=== PATIENT | male | born 1975 | race Caucasian/White ===

== ENCOUNTER → 2021-07-09 08:47 | Outpatient (BNVA) | payer BC, SELFPAY | PROVIDERS: Visit Provider Orthopaedic Surgery | DX: M25.512 Pain in left shoulder (principal); G89.29 Other chronic pain | CPT/HCPCS: 73030 ==

== ENCOUNTER → 2023-01-28 10:48 | Outpatient (BNVA) | payer OTHER, SELFPAY | PROVIDERS: Visit Provider Emergency Medicine | DX: J02.9 Acute pharyngitis, unspecified (principal); R05.8 Other specified cough; J18.9 Pneumonia, unspecified organism | CPT/HCPCS: 87071; 87400; 87426; 87880 ==

== ENCOUNTER 2024-06-25 17:41 | Emergency (ER) | payer OTHER, SELFPAY ==
[2024-06-25 18:08] VITALS: BP 123/80; PULSE 72; RESP 16; TEMP 36.8; O2SAT 98; BMI 25.5
--- NOTE | 2024-06-25 19:06 | ED_ITS ---
HPI - Wound/Laceration General: Chief Complaint: Wound/Laceration Stated Complaint: lac RT thumb Time Seen by Provider: 06/25/24 18:51 History of Present Illness: 48-year-old male with getting an onion a t home and cut the tip of his right thumb. He is unsure of his last tetanus. No other injuries. There is a small amount of bleeding. Related Data Previous Rx's ?Medication ?Instructions ?Recorded albuterol sulfate 90 mcg/actuation 2 inh inhalation Q4 H PRN shortness 10/16/23 aerosol inhaler of breath or wheezing #8.5 g benjamín amoxicillin 875 mg-potassium 1 tab PO BID 10 days #20 tabs 10/16/23 clavulanate 125 mg tablet prednisone 20 mg tablet 20 mg PO BID 5 days #10 tabs 10/16/23 albuterol sulfate 2.5 mg/3 mL 2.5 mg (3 mL) inhalation Q4H PRN 10/20/23 (0.083 %) solution for nebulization shortness of breat h or wheezing #90 mL mupirocin 2 % topical ointment 1 applic topical BID #1 5 grams 06/25/24 (Centany) Allergies Allergy/AdvReac Type Severity Reaction Status Date / Time No Known Allergies Allergy Verified 06/25/24 18:11 Review of Systems Musc: Reports: other (Laceration tip right thumb) [facility] ED PFSH: Social History Smoking and tobacco/nicotine status: never used tobacco/nicotine Alcohol intake: never Substance/Drug Use: never Physical Exam Extremity: OTHER: Partial avulsion of the tip of the right thumb there is still a pedicle flap tissue appears viable. Digital nerve block carried out 4 interrupted sutures used to approximate skin. Good cosmesis and hemostasis. Procedures Laceration Laceration 1: Site: hand Side (If applicable): right Size (cm): 1 Description: flap Pre-repair: irrigated extensively Skin layer closed with: nylon Size (cm): 4-0 Number of sutures: 4 Technique: simple, interrupted Nerve Block Nerve Block 1: Local Anesthetic: lidocaine 1% Amount of anesthesia used (mL): 3 Side: right Nerve Blocks: digital (Right thumb) Procedure Successful: Yes Patient Tolerated Procedure: well Complications: none Course Vital Signs: Vital signs: Vital Signs Temperature 98.2 F 06/25/24 18:08 Pulse Rate 72 06/25/24 18:08 Respiratory Rate 16 06/25/24 18:08 Blood Pressure 123/80 06/25/24 18:08 Pulse Oximetry 98 06/25/24 18:08 MDM - Wound/Laceration Medical Decision Making Wound care instructions given follow-up with primary care to remove sutures in 7 to 10 days. No radiology studies performed this visit Discharge Plan Discharge Patient Disposition: Home Clinical Impression: Laceration Condition: Stable Prescriptions: New mupirocin [Centany] 2 % ointment 1 applic topical BID Qty: 15 0RF No Action prednisone 20 mg tablet 20 mg PO BID 5 Days Qty: 10 0RF amoxicillin-pot clavulanate 875-125 mg tablet 1 tab PO BID 10 Days Qty: 20 0RF albuterol sulfate 90 mcg/actuation HFA aerosol inhaler 2 inh inhalation Q4H PRN (Reason: shortness of breath or wheezing) Qty: 8.5 0RF albuterol sulfate 2.5 mg /3 mL (0.083 %) solution for nebulization 2.5 mg inhalation Q4H PRN (Reason: shortness of breath or wheezing) Qty: 90 0RF Discharge Orders: Discharge ED (Routine); Ordered 06/25/24 Ordered By: Judah Crouch Referrals: Cassius Elmore MD [Primary Care Provider, Family Practice] Discharge Diet: Usual diet Discharge Activity: Increase activity as tolerated Patient Instructions: Opioid Safety, Pain Management Activity Restrictions/Additional Instructions: Thank you for choosing [facility] for your healthcare needs today. It is very important that you follow up as instructed or that you return to the Emergency Department should you have concerns or if your condition changes or worsens in any way. You are seen in the emergency room with complaints of laceration to your right thumb. Wound was closed with sutures. Apply topical antibiotic ointment to the wound twice daily and keep covered while you are working sutures should be removed in 7 to 10 days. Your primary care doctor can remove those. Print Language: Polish Coding Level of Care Code ED [employer] for Katie Graf
[2024-06-25] MEDS: tetanus-dipt-pertussis 0.5 mL SDV IM (19:31)
[2024-06-25] MEDS: lidocaine 1% 10 ML INJ 20 ML IM (19:32)
== END 2024-06-25 19:40 | disposition home or self-care (01) ==
PROVIDERS: Emergency Provider Family Medicine; PCP Family Medicine
DX: S61.011A Laceration without foreign body of right thumb without damage to nail, initial encounter (principal); X58.XXXA Exposure to other specified factors, initial encounter
CPT/HCPCS: 12001; 90471; 90715; 99283; J9999